=== PATIENT | male | born 2000 | race Two or more races ===

== ENCOUNTER 2023-10-09 17:55 | Emergency (ER) | payer SELFPAY ==
[~2023-10-09] VITALS: Ht 180.3 cm; Wt 113.6 kg
[2023-10-09 18:05] VITALS: BP 147/75; PULSE 120; RESP 22; O2SAT 98
== END 2023-10-09 18:10 | disposition left against medical advice (07) ==
LOC: EDBD 17:55 → ER 17:55
DX: R56.9 Unspecified convulsions (principal); Z53.21 Procedure and treatment not carried out due to patient leaving prior to being seen by health care provider